=== PATIENT | female | born 2000 | race Caucasian/White ===

== ENCOUNTER 2024-07-24 00:03 | Inpatient (IN) | payer OTHER ==
[~2024-07-24] VITALS: Ht 170.2 cm; Wt 111.1 kg
[~2024-07-24 00:03] MED LIST: CALCIUM CARBONATE 500 MG CHEW PO PRN; LACTATED RINGER'S 1,000 ML IV PRN; LACTATED RINGER'S 1,000 ML IV SCH; MAGNESIUM HYDROXIDE/AL HYDROX 30 ML CUP PO PRN; miSOPROStoL 25 MCG TAB PV SCH
[2024-07-24 00:40] VITALS: BP 138/86
[2024-07-24 00:41] LABS: HEMATOCRIT 36.8 % (35.0-50.0); HEMOGLOBIN 12.6 g/dL (12.0-18.0); MCH 30.7 (27-36); MCHC 34.3 g/dl (30-36); MCV 89.4 fl (81-99); RBC 4.11 M/ul (4.3-5.7); RDW 14.2 (10.5-15.0)
[2024-07-24 00:58] LABS: AMPHETAMINES, URINE NEGATIVE (NEGATIVE); BARBITURATES, URINE NEGATIVE (NEGATIVE); BENZODIAZEPINE, URINE NEGATIVE (NEGATIVE); BUPRENORPHINE, URINE NEGATIVE (NEGATIVE); CANNABINOID, URINE POSITIVE (NEGATIVE); COCAINE, URINE NEGATIVE (NEGATIVE); ECSTASY, URINE NEGATIVE (NEGATIVE); FENTANYL, URINE NEGATIVE (NEGATIVE); METHADONE, URINE NEGATIVE (NEGATIVE); OPIATES, URINE NEGATIVE (NEGATIVE); OXYCODONE, URINE NEGATIVE (NEGATIVE); PHENCYCLIDINE, URINE NEGATIVE (NEGATIVE)
[2024-07-24 02:26] LABS: ABO A; ANTIBODY SCREEN NEGATIVE; RH NEGATIVE
[2024-07-24] MEDS ORDERED: OXYTOCIN/0.9 % SODIUM CHLORIDE 30 UNITS/500 ML BAG IV SCH (08:00)
[2024-07-24] MEDS ORDERED: ROPIVACAINE 0.2% 200 ML BAG ONE (11:12)
[2024-07-24] MEDS ORDERED: LACTATED RINGER'S 2,000 ML IV ONE (12:00)
[2024-07-24] MEDS ORDERED: ROPIVACAINE 0.2% 200 ML BAG EPIDURAL SCH (12:00)
[2024-07-24] MEDS ORDERED: LACTATED RINGER'S 500 ML IV PRN (12:00)
[2024-07-24] MEDS ORDERED: ePHEDrine sulfate 5 MG/ML SYRINGE IV PRN (12:00)
[2024-07-24] MEDS ORDERED: OXYTOCIN/0.9 % SODIUM CHLORIDE 500 ML IV SCH (14:30)
[2024-07-25] MEDS ORDERED: SODIUM CHLORIDE 0.9% 20 ML IV ONE ×2 (01:40→16:45)
[2024-07-25] MEDS ORDERED: BUPIVACAINE HCL 0.5% 30 ML VIAL ONE (01:40)
[2024-07-25] MEDS ORDERED: ACETAMINOPHEN 1,000 MG/100 ML VIAL IV ONE ×2 (04:00→20:45)
--- NOTE | 2024-07-25 09:36 | PR ---
[facility] [facility] [address] [place], [place] [address] Signed Progress Notes IP Datetime Report Generated by CPN: 07/25/2024 09:35 PROGRESS NOTES: [id number] Impression: Normal Progression of Labor Procedures: Intrauterine Pressure Catheter; Scalp Electrode; Sterile Vag Exam Plan: Augmentation Informed Consent Obtain: Vaginal Delivery VITAL SIGNS: [id number] Vital Signs: Reviewed; Within Normal Limits EXAM: [id number] Dilatation: 8.0 Effacement: 90 Station: -1 Contractions: q2-3 MEMBRANES: [id number] Membranes Status: Ruptured ROM Note: small amount of blood noted on rupture Comments: Will continue to increase pitocin to obtain adequate MVU. FETUS A: [id number] FHR Baseline: 150 Variability: Moderate 6-25bpm Accelerations: 15X15 Decelerations: None FHR Category: Category I Presentation: Vertex Comments on Fetus A: No evidence of metabolic acidosis FETUS B: [id number] Signing Physician: Grecia Robles MD Copies: ~ *Electronically Signed* 07/25/24 0935 GRECIA ROBLES MD PATIENT NAME: HANNAH YIN PROGRESS NOTE DATE OF : 99 PHYSICIAN: GRECIA ROBLES MD RPT #: [id number] REPORT IS CONFIDENTIAL AND NOT TO BE RELEASED WITHOUT AUTHORIZATION
[2024-07-25 10:36] LABS: IS CROSSMATCH COMPATIBLE
[2024-07-25] MEDS ORDERED: ondansetron HCL 4 MG/2 ML VIAL IV ONE (15:15)
[2024-07-25] MEDS ORDERED: CEFAZOLIN SODIUM 2 GM/20 ML SYR IV SCH (15:17)
--- NOTE | 2024-07-25 15:19 | PR ---
[facility] [address] [place], [place] [address] Signed Progress Notes IP Datetime Report Generated by MIKI: 07/25/2024 15:19 PROGRESS NOTES: [id number] Impression: Arrest of Dilatation/Descent Procedures: Sterile Vag Exam Plan: Deliver- Section Informed Consent Obtain: Section Delivery; Risks, Benefits and Alternatives Discussed VITAL SIGNS: [id number] Vital Signs: Reviewed; Within Normal Limits EXAM: [id number] Dilatation: 8.5 Effacement: 90 Station: -1 Contractions: q2-4.5 min MEMBRANES: [id number] Membranes Status: Ruptured ROM Note: small amount of blood noted on rupture Comments: Discussed with patient failure to progress despite augmentation with pitocin. Pitocin has been at 20-26 over the past 2+ hours with decreasing contraction strength and no cervical change. At this time we discussed the options of Continued labor augmentation with pitocin with the understanding that we are unable to achieve adequate contractions and there is incrasing risk of infection or hemorrhage with prolonged labor or the option of for failure to progress. She agrees to C/S she understands anticipated recovery time, anticipated surgical incision, risk of bleeding, infection, injury to other surrounding structures, impact on future pregnancies. She understands and desires to proceed. FETUS A: [id number] FHR Baseline: 150 Variability: Moderate 6-25bpm Accelerations: 15X15 Decelerations: None FHR Category: Category I Presentation: Vertex Comments on Fetus A: No evidence of metabolic acidosis FETUS B: [id number] Signing Physician: Grecia Robles MD *Electronically Signed* 03/11/25 1519 GRECIA ROBLES MD PATIENT NAME: HANNAH YIN PROGRESS NOTE DATE OF : 99 PHYSICIAN: GRECIA ROBLES MD RPT #: [id number] REPORT IS CONFIDENTIAL AND NOT TO BE RELEASED WITHOUT AUTHORIZATION [address] [place], [place] [address] Signed Copies: ~ *Electronically Signed* 07/25/241518 GRECIA ROBLES MD PATIENT NAME: HANNAH YIN PROGRESS NOTE DATE OF : 99 PHYSICIAN: GRECIA ROBLES MD RPT #: [id number] REPORT IS CONFIDENTIAL AND NOT TO BE RELEASED WITHOUT AUTHORIZATION
[2024-07-25] MEDS ORDERED: LIDOCAINE HCL 2% 5 ML SDV ONE (15:29)
[2024-07-25] MEDS ORDERED: LIDOCAINE 2% W/ EPI 1:200,000 20 ML SDV ONE (15:29)
[2024-07-25] MEDS ORDERED: OXYTOCIN 10 UNITS/ML VIAL ONE ×2 (15:31→16:20)
[2024-07-25] MEDS ORDERED: ePHEDrine sulfate 50 MG/ML AMP ONE (15:32)
[2024-07-25] MEDS ORDERED: PHENYLEPHRINE HCL 10 MG/ML VIAL ONE (15:32)
[2024-07-25] MEDS ORDERED: TRANEXAMIC ACID 1,000 MG/10 ML AMP ONE ×2 (15:38→16:40)
[2024-07-25] MEDS ORDERED: FAMOTIDINE 20 MG/ 2 ML VIAL ONE (15:50)
[2024-07-25] MEDS ORDERED: ondansetron HCL 4 MG/2 ML VIAL ONE (16:01)
[2024-07-25] MEDS ORDERED: DEXAMETHASONE SOD PHOS 4 MG/ML VIAL ONE ×2 (16:01→16:29)
[2024-07-25] MEDS ORDERED: fentaNYL citrate 100 MCG/2 ML VIAL ONE (16:04)
[2024-07-25] MEDS ORDERED: dexmedeTOMIDine HCl 200 MCG/2 ML VIAL ONE (16:19)
[2024-07-25] MEDS ORDERED: Ropivacaine HCl 0.5% 30 ML VIAL ONE (16:29)
[2024-07-25] MEDS ORDERED: SODIUM CHLORIDE 0.9% 60 ML IV ONE (16:29)
[2024-07-25] MEDS ORDERED: MORPHINE SULFATE 1 MG/ML VIAL ONE (16:42)
[2024-07-25 16:55] LABS: HEMATOCRIT 32.6 % (35.0-50.0); HEMOGLOBIN 11.1 g/dL (12.0-18.0); MCH 30.4 (27-36); MCV 89.3 fl (81-99); PLATELET COUNT 169 K/uL (140-440); RBC 3.65 M/ul (4.3-5.7); RDW 14.1 (10.5-15.0)
[2024-07-25 17:06] LABS: INR 1.14 (0.80-1.30); PROTIME 14.6 Sec (11.2-14.2)
[2024-07-25] MEDS ORDERED: PROMETHAZINE HCL 25 MG TAB PO PRN (17:15)
[2024-07-25] MEDS ORDERED: LIDOCAINE 2% VISCOUS 6 ML SYR TOP ONE (17:15)
[2024-07-25] MEDS ORDERED: ondansetron HCL 4 MG/2 ML VIAL IV PRN ×2 (17:15→17:45)
[2024-07-25] MEDS ORDERED: METOCLOPRAMIDE HCL 10 MG/2 ML SDV IV PRN (17:15)
[2024-07-25] MEDS ORDERED: LACTATED RINGER'S 1,000 ML IV SCH (17:15)
[2024-07-25] MEDS ORDERED: OXYTOCIN/0.9 % SODIUM CHLORIDE 500 ML IV SCH (17:15)
[2024-07-25] MEDS ORDERED: PROCHLORPERAZINE EDISYLATE 10 MG/2 ML VIAL IV PRN (17:15)
[2024-07-25] MEDS ORDERED: HYDROCODONE/ACETA 5/325 TAB PO PRN (17:15)
[2024-07-25] MEDS ORDERED: PROMETHAZINE HCL 25 MG SUPP PR PRN (17:15)
[2024-07-25] MEDS ORDERED: OXYCODONE HCL 5 MG TAB PO PRN (17:15)
[2024-07-25] MEDS ORDERED: fentaNYL citrate 50 MCG/ML SDV IV PRN (17:45)
[2024-07-25] MEDS ORDERED: NALOXONE HCL 0.4 MG SYR IV PRN (17:45)
[2024-07-25] MEDS ORDERED: IBLOOD GLUCOSE TEST STRIP 1 EA TEST VI PRN (17:45)
--- NOTE | 2024-07-25 17:51 | NUR ---
07/25/24 1751 Amarilis Day 1705 PT ARRIVED TO PACU ON RA, PT MOANING AND REPORTS PAIN 09/23. "IT HURTS IN MY CHEST."
[2024-07-25 17:59] VITALS: BP 124/60
[2024-07-25] MEDS ORDERED: KETOROLAC TROMETHAMINE 30 MG/ML VIAL IV SCH (20:00)
[2024-07-25] MEDS ORDERED: SIMETHICONE 80 MG CHEW PO SCH (21:00)
[2024-07-25 21:42] LABS: HEMATOCRIT 32.9 % (35.0-50.0); HEMOGLOBIN 11.3 g/dL (12.0-18.0); MCH 30.6 (27-36); MCHC 34.2 g/dl (30-36); MCV 89.5 fl (81-99); PLATELET COUNT 187 K/uL (140-440); RBC 3.67 M/ul (4.3-5.7); RDW 14.3 (10.5-15.0)
[2024-07-25 22:00] LABS: LYMPHOCYTES, MANUAL DIFF 4; NEUTROPHILS, MANUAL DIFF 96
[2024-07-26 06:29] LABS: HEMATOCRIT 32.8 % (35.0-50.0); HEMOGLOBIN 11.1 g/dL (12.0-18.0); MCH 30.3 (27-36); RBC 3.68 M/ul (4.3-5.7); RDW 14.8 (10.5-15.0)
[2024-07-26 07:48] LABS: ABO A; ANTIBODY SCREEN NEGATIVE; RH NEGATIVE
[2024-07-26 08:13] LABS: FETAL HEMOGLOBIN SCREEN NEGATIVE; RHIG DOSE 1; RHIG STATUS CANDIDATE; RHIG VIAL 1 RG24K02-L
--- NOTE | 2024-07-26 09:01 | PR ---
[facility] [address] [facility] [place], [place] [address] Signed PP Progress Notes Datetime Report Generated by CPN: 07/26/2024 09:01 SUBJECTIVE: [id number] Pain: Within Normal Limits Nausea/Vomiting: Denies Flatus: Yes Bowel Movement: No Vital Signs: [id number] Vital Signs: Reviewed; Within Normal Limits Notable Details: +2 LE edema EXAM: Ongoing Cardiovascular: Normal Respiratory: Normal Abdomen/Uterus: Normal Lochia: Normal Vulva/Perineum: Normal Breasts: Normal CVA Tenderness: Not Done Extremities: Abnormal Incision: Normal IMPRESSION/PLAN/PROCEDURES: [id number] Impression: Normal Progression Plan: Continue Present Management Procedures: None Progress Notes: Recovering well H/H 11.1/32.8 plt 214 WBC 25.3. Normal lochia, uterus 3 fb below umbilicus. pain well controlled. Anticipate D/C tomorrow. Signing Physician: Grecia Robles MD Copies: ~ *Electronically Signed* 07/26/24 0901 GRECIA ROBLES MD PATIENT NAME: CLARKAdeHANNAHHOLLIS PABLO PROGRESS NOTE DATE OF : 99 PHYSICIAN: GRECIA ROBLES MD RPT #: [id number] REPORT IS CONFIDENTIAL AND NOT TO BE RELEASED WITHOUT AUTHORIZATION
[2024-07-26] MEDS ORDERED: IBUPROFEN 600 MG TAB PO SCH (20:00)
== END 2024-07-27 12:06 | disposition home or self-care (01) | DRG 787 ==
LOC: FBC 00:03
PROVIDERS: Obstetrics & Gynecology; ADMIT Obstetrics & Gynecology; ATTEND Obstetrics & Gynecology
PROC: 10D00Z1 Extraction of Products of Conception, Low, Open Approach (ICD-10-PCS; principal; 2024-07-25 15:58)
DX: O48.0 Post-term pregnancy (principal); O72.1 Other immediate postpartum hemorrhage; O99.324 Drug use complicating childbirth; Z88.1 Allergy status to other antibiotic agents; O99.334 Smoking (tobacco) complicating childbirth; F17.210 Nicotine dependence, cigarettes, uncomplicated; O99.214 Obesity complicating childbirth; Z3A.41 41 weeks gestation of pregnancy; F12.90 Cannabis use, unspecified, uncomplicated; Z37.0 Single live birth
CPT/HCPCS: 01961; 36415; 76942; 80307; 83030; 85025; 85027; 85060; 85384; 85610; 85730; 86850; 86900; 86901; 86922; A9270; J0131; J0690; J1100; J1885; J2003; J2274; J2371; J2405; J2590; J2790; J2795; J3010; J7121